=== PATIENT | male | born 1955 | race Caucasian/White ===

== ENCOUNTER 2023-03-12 09:50 | Outpatient (CLI) | payer OTHER, SELFPAY ==
--- NOTE | ~2023-03-12 | CT_ITS ---
EXAMINATION: CT abdomen pelvis wo con DATE: 03/12/2023 10:16 INDICATION: Kidney stone. TECHNIQUE: Computed tomography (CT) of the abdomen and pelvis was performed without intravenous contr ast. Automated exposure control and iterative reconstruction technique were employed. The dose-length product was 530.08 mGy-cm. COMPARISON: None. FINDINGS: The visualized portions of the lung bases demonstrate mild atelectasis. A calcified right l sandy nodule and calcified right hilar lymph nodes are consistent with old granulomatous disease. There is a 6 mm nodule in right lower lobe. There is mild bronchiectasis bilaterally. No pleural effusion. The liver, gallbladder, spleen, pancreas, adrenal glands are normal. There are 4 stones in right kid brayden measuring up to 6 mm. There are cysts in left kidney measuring up to 3.0 cm. There is a 6 mm ston e in left kidney. There is mild bilateral hydronephrosis and hydroureter. The bladder is markedly dis tended. The prostate is mildly enlarged. There is diverticulosis of the colon without evidence of div erticulitis. There are no dilated loops of bowel. The appendix is normal. There is a small sliding hi atal hernia. There are no pathologically enlarged lymph nodes. There is no free intraperitoneal fluid . There is moderate thoracic spondylosis. There is severe lumbar spondylosis. There is mild chronic a nterior wedging of multiple thoracic vertebral bodies. IMPRESSION: 1. Bilateral nonobstructing kidney stones. 2. Mild bilateral hydronephrosis and hydroureter, likely secondary to marked bladder distention. 3. 6 mm pulmonary nodule, probably benign. Consider noncontrast low-dose chest CT in 6-12 months. Reviewed, dictated and finalized at location A. [employer] IMPRESSION: 1. Bilateral nonobstructing kidney stones. 2. Mild bilateral hydronephrosis and hydroureter, likely secondary to marked bl adder distention. 3. 6 mm pulmonary nodule, probably benign. Consider noncontrast low-dose chest CT in 6-12 months.
== END 2023-03-12 09:51 | disposition home or self-care (01) ==
PROVIDERS: PCP Physician Assistant Medical; Visit Provider Nurse Practitioner Family
DX: R35.0 Frequency of micturition (principal); R31.9 Hematuria, unspecified; R10.9 Unspecified abdominal pain; N20.0 Calculus of kidney; N13.30 Unspecified hydronephrosis; N13.4 Hydroureter; R91.1 Solitary pulmonary nodule
CPT/HCPCS: 74176

== ENCOUNTER 2024-07-21 09:45 | Outpatient (CLI) | payer MEDICARE, OTHER, SELFPAY ==
--- NOTE | ~2024-07-21 | CT_ITS ---
Clinical Indication: Pulmonary nodule CT Scan of the Chest with Contrast: Technique: Contiguous sections were acquired throughout the chest after intravenous administration of 75 cc of Omnipaque 350. Dose reduction technique was used on this scan by utilizing automated exposu re control and iterative reconstruction technique. The dose-length product (DLP) was 700.23 mGy-cm. COMPARISON: 03/12/2023 Findings: There is no evidence of any significant mediastinal, hilar or axillary lymphadenopathy. There is no f illing defect in the pulmonary arterial tree to suggest pulmonary embolus. There is no evidence of ao rtic dissection or aneurysm. There is no evidence of pleural or pericardial effusion. Stable 5 mm right lower lobe nodule medially (axial image 78). Stable additional 3 mm pleural-based n odule the right lung base (axial image 95). Stable calcified right lower lobe granuloma. Images through the upper abdomen reveal 7 mm nonobstructing left renal stone. Suspected parapelvic cy sts versus possibly mild bilateral hydronephrosis.. Impression: Stable subcentimeter pulmonary nodules, as above. 7 mm nonobstructing left renal stone. Reviewed, dictated and finalized at location M. Impression: Stable subcentimeter pulmonary nodules, as above. 7 mm nonobstructing left renal stone.
[2024-07-21 10:10] LABS: Estimated Glomerular Filt Rate > 60
== END 2024-07-21 09:46 | disposition home or self-care (01) ==
LOC: MICIMG 09:46
PROVIDERS: PCP Physician Assistant Medical; Visit Provider Physician Assistant Medical
DX: R91.1 Solitary pulmonary nodule (principal); N20.0 Calculus of kidney; Z91.89 Other specified personal risk factors, not elsewhere classified
CPT/HCPCS: 71260; Q9967